=== PATIENT | female | born 1940 | race Caucasian/White ===

== ENCOUNTER 2019-04-30 13:20 | Emergency (ER) | payer SELFPAY ==
[2019-04-30] MEDS: IOHEXOL 100 ML (13:56)
[2019-04-30] MEDS: SOD CHLORIDE 0.9% 100 ML (13:56)
[2019-04-30] MEDS: SOD CHLORIDE 0.9% 50 ML IV (14:15)
[2019-04-30] MEDS: ALTEPLASE (tPA) 1 MG/ML BOLUS SYG IV* (14:15)
[2019-04-30] MEDS: ALTEPLASE 100 MG INJ IV* (14:16)
== END 2019-04-30 18:25 | disposition short-term general hospital (02) ==
LOC: E/R 13:20
DX: I63.9 Cerebral infarction, unspecified (principal); E11.9 Type 2 diabetes mellitus without complications; Z85.3 Personal history of malignant neoplasm of breast
CPT/HCPCS: 37195; 70450; 70496; 70498; 71045; 80048; 80061; 80307; 82550; 82553; 82962; 83036; 84484; 85025; 85610; 85730; 93005; 99285-25